=== PATIENT | female | born 2000 | race Two or more races ===

== ENCOUNTER 2023-12-29 23:33 | Inpatient (IN) ==
[2023-12-30 00:20] LABS: Appearance Urine Clear (Clear); Bacteria Urine Automated None Seen (None Seen); Bilirubin Urine Negative (Negative); Blood Urine Negative (Negative); Cast Urine Automated 0-2 /lpf (0-2); Color Urine Yellow; Epithelial Cell Urine Auto 0-2 /hpf (0-2); Glucose Urine UA Negative (Negative); Ketones Urine Negative (Negative); Leukocyte Esterase Urine 2+ (Negative); Nitrite Urine Negative (Negative); Protein Urine Negative (Negative); RBC Urine Automated 0-2 /hpf (0-2); Specific Gravity Urine 1.005 (1.000-1.030); Urobilinogen Urine Negative (Negative)
[2023-12-30 00:21] LABS: Basophils # (auto) 0.03 K/uL (0.00-0.20); Basophils % (auto) 0.5 %; Eosinophils # (auto) 0.08 K/uL (0.00-0.50); Eosinophils % (auto) 1.5 %; Hematocrit (blood only) 38.4 % (37.0-47.0); Hemoglobin 13.3 g/dl (12.0-16.0); Immature Granulocytes # (auto) 0.01 K/uL (0.01-0.20); Immature Granulocytes % (auto) 0.2 %; Lymphocytes # (auto) 2.51 K/uL (1.20-3.40); Lymphocytes % (auto) 45.6 %; Mean Corpuscular Hemoglobin 27.1 pg (25.0-34.0); Mean Corpuscular Hgb Conc 34.6 g/dL (32.0-36.0); Mean Corpuscular Volume 78.4 fL (80.0-100.0); Mean Platelet Volume 9.8 fL (9.4-12.4); Monocytes # (auto) 0.36 K/uL (0.11-0.59); Monocytes % (auto) 6.5 %; Neutrophils # (auto) 2.52 K/uL (1.40-6.50); Neutrophils % (auto) 45.7 %; Platelet Count 295 K/uL (130-400); RDW Coefficient of Variation 12.1 % (11.5-14.5); RDW Standard Deviation 34.2 fL (36.4-46.3); White Blood Count 5.51 K/ul (4.8-10.8)
[2023-12-30 00:33] LABS: Pregnancy Test, Serum Negative (Negative)
[2023-12-30 00:34] LABS: Acetaminophen < 3 ug/ml (10-30); Salicylate < 3.0 mg/dl (3.0-30)
[2023-12-30 00:35] LABS: Albumin Globulin Ratio 1.2 (0.9-2); BUN Creatinine Ratio 15.1 (10-20); Bilirubin,Total 0.3 mg/dl (0.2-1.0); Calcium 10.3 mg/dl (8.6-10.3); Creatinine Clr Calc Pharmacy 93.2 ml/min; Est GFR (African American) 132.7 ml/min; Est GFR (Non-African American) 114.5 ml/min; Globulin 4.1 gm/dl (2.5-4.0); Potassium 4.1 mmol/L (3.5-5.1); Total Protein 9.1 gm/dl (6.0-8.3)
[2023-12-30 00:36] LABS: Amphetamines+Metham, Urine Neg (Neg); Barbiturates, Urine Neg (Neg); Benzodiazepine, Urine Neg (Neg); Cocaine, Urine Neg (Neg); Fentanyl, Urine Neg (Neg); MDMA (Ecstacy), Urine Neg (Neg); Marijuana, Urine Neg (Neg); Methadone, Urine Neg (Neg); Opiate, Urine Neg (Neg); Phencyclidine, Urine Neg (Neg)
[2023-12-30 00:50] LABS: Thyroid Stimulating Hormone 5.873 uIu/ml (0.300-4.500)
[2023-12-30 01:25] LABS: T4 Free Thyroxine 0.78 ng/dl (0.61-1.60)
--- NOTE | 2023-12-30 04:14 | Emergency Department Note ---
Impression & Plan Depression, Intentional overdose, Deliberate self-cutting, Suicidal ideation ED Provider Note ED Provider Note NAME: GEOVANNY DAVIS AGE:23 SEX: Female : 2000 ARRIVES VIA: EMS INFORMANT: Patient ED PROVIDER(s): Cammie Fonseca DO CHIEF COMPLAINT: Mental health evaluation HPI: This is a 23-year-old female who presents emerged department for mental health evaluation. Patient with a history of borderline personality disorder and admits to increased anxiety as well as suicidal ideation recently. He states he does take medications and none of these have changed. Patient states she does have a history of self-harm and did self-harm today by using a razor blade to cut her left arm. She states while historically it has been as a way to relieve stress, today she had suicidal ideation accompanying. Patient states she also intentionally took extra Klonopin this evening at around 11 PM. Nursing staff did contact poison control prior to my evaluation of the patient. Patient denies any homicidal ideation, paranoia, or hallucinations. PAST MEDICAL HISTORY:See Below PAST SURGICAL HISTORY:See Below FAMILY HISTORY:See Below SOCIAL HISTORY:See Below HOME MEDICATIONS:See Below ALLERGIES:See Below VITALS:See Below PHYSICAL EXAMINATION: GENERAL: alert, well appearing, well nourished, no distress, non-toxic EYE EXAM: normal conjunctiva, PERRL and EOM's grossly intact OROPHARYNX: no exudate, no erythema, lips, buccal mucosa, and tongue normal and mucous membranes are moist NECK: supple, no nuchal rigidity, no adenopathy, non-tender LUNGS: Clear to auscultation. Normal chest wall mechanics, no w/r/r HEART: no murmurs, S1 normal and S2 normal ABDOMEN: abdomen soft, non-tender, normo-active bowel sounds, no masses, no rebound or guarding. SKIN: no rashes, petechiae, orbruising UPPER EXTREMITIES: upper extremities are grossly normal. FROM, nml pulses b/l. Multiple superficial lacerations noted left ventral forearm. LOWER EXTREMITIES: No pitting edema. FROM, nml pulses b/l. NEURO EXAM: Normal sensorium, cranial nerves II-XII grossly intact, normal speech, no facial droop,nogross weakness of arms, no gross weakness of legs. Gross sensation intact. No ataxia. Vital Signs: reviewed and remarkable Differential Diagnosis: mood disorder, suicidal ideation, anxiety, depression, substance abuse, toxidrome, infection, hypoglycemia, electrolyte abnormalities, ICH as well as others were considered. MEDICAL DECISION MAKING: This is a 23-year-old female presents emergency room due to concern for increased anxiety, depression, and suicidal ideation with attempted overdose and self-harm with cutting. Labs and urine collected and sent per protocol. Nursing staff did contact poison control as a precaution due to patient's admission of extra glass of p.m. She was observed for the recommended 5 hours and had no new or evolving symptoms. She was hemodynamically stable throughout. Patient evaluated by case management. Lacerations noted to the left forearm did not require any additional repair. Patient referred to [facility] and accepted there for additional inpatient mental health treatment. Consultation(s): 0550: Rosa, outpatient case manager, performed evaluation and referred patient to [facility] liaison came and spoke with the patient. 201 signed by me. ER Treatment Provided: See below Diagnostics Interpreted By Me: -Laboratory studies: As stated above and show below. Triage Nursing Note Reviewed Prior/Outside Records Reviewed Past Med/Surg History Problem List (Updated 12/30/23 @ 06:49 by Sara Burris) Suicidal ideation (Acute) Deliberate self-cutting (Acute) Intentional overdose (Acute) Depression (Acute) Social History (System 12/30/23 @ 06:49 by Sara Burris) Smoking Status: Current some day smoker Tobacco Type: E-cigarettes / Vaping Preferred Language: Uruguayan Feels Safe at Home: Yes Gender Identity: Female Allergies Allergies Allergy/AdvReac Type Severity Reaction Status Date / Time No Known Allergies Allergy Verified 12/30/23 06:49 Home Meds Home Medications Medication Instructions Recorded Confirmed clonazepam 0.25 mg disintegrating 0.25 mg PO HS 12/30/23 12/30/23 tablet drospirenone 3 mg-ethinyl 1 tab PO HS 12/30/23 12/30/23 estradiol 0.03 mg tablet (Natalia (28)) escitalopram oxalate 10 mg tablet 10 mg PO BID 12/30/23 12/30/23 Results & Data (ED) Vital Signs Vital Signs - 24 hr 12/29/23 23:48 12/29/23 23:57 12/30/23 01:42 Temperature 36.9 C Temperature Source Oral Pulse Rate 88 85 96 H Pulse Rate [Apical] Pulse Rate from SpO2 Sensor 99 H Pulse Rhythm [Apical] Pulse Strength [Apical] Respiratory Rate 18 21 Respiratory Effort / Characteristics Non-Labored Spontaneous Respiratory Depth Normal Respiratory Pattern Regular Blood Pressure 133/104 H 120/92 Blood Pressure [Left Arm] Blood Pressure Mean 113 101 Blood Pressure Mean [Left Arm] Blood Pressure Position Lying Blood Pressure Position [Left Arm] Pulse Oximetry 100 99 Oxygen Delivery Method Room Air Room Air Sepsis Recent Fever Within 48 Hours No Sepsis New/Unexplained Change in Mental Status N/A Sepsis Action Taken by Nursing No Action Required 12/30/23 02:30 12/30/23 03:30 12/30/23 03:59 Temperature Temperature Source Pulse Rate 89 91 H Pulse Rate [Apical] 86 Pulse Rate from SpO2 Sensor 89 Pulse Rhythm [Apical] Regular Pulse Strength [Apical] Normal Respiratory Rate 18 19 Respiratory Effort / Characteristics Non-Labored Spontaneous Respiratory Depth Normal Respiratory Pattern Blood Pressure 100/72 Blood Pressure [Left Arm] 118/90 Blood Pressure Mean 81 Blood Pressure Mean [Left Arm] 99 Blood Pressure Position Blood Pressure Position [Left Arm] Lying Pulse Oximetry 98 97 Oxygen Delivery Method Room Air Room Air Sepsis Recent Fever Within 48 Hours Sepsis New/Unexplained Change in Mental Status Sepsis Action Taken by Nursing 12/30/23 04:00 12/30/23 04:30 12/30/23 05:00 Temperature Temperature Source Pulse Rate Pulse Rate [Apical] 86 87 88 Pulse Rate from SpO2 Sensor Pulse Rhythm [Apical] Regular Regular Regular Pulse Strength [Apical] Normal Normal Normal Respiratory Rate 15 15 15 Respiratory Effort / Characteristics Non-Labored Spontaneous Non-Labored Spontaneous Non-Labored Spontaneous Respiratory Depth Normal Normal Normal Respiratory Pattern Regular Regular Regular Blood Pressure Blood Pressure [Left Arm] 97/78 L 104/75 105/72 Blood Pressure Mean Blood Pressure Mean [Left Arm] 84 84 83 Blood Pressure Position Blood Pressure Position [Left Arm] Lying Lying Lying Pulse Oximetry 97 98 99 Oxygen Delivery Method Room Air Room Air Room Air Sepsis Recent Fever Within 48 Hours Sepsis New/Unexplained Change in Mental Status Sepsis Action Taken by Nursing Laboratory Data 12/29/23 23:50 12/29/23 23:50 Lab Results 12/29/23 Range/Units 23:50 WBC 5.51 (4.8-10.8) K/ul RBC 4.90 (4.20-5.40) M/uL Hgb 13.3 (12.0-16.0) g/dl Hct 38.4 (37.0-47.0) % MCV 78.4 L (80.0-100.0) fL MCH 27.1 (25.0-34.0) pg MCHC 34.6 (32.0-36.0) g/dL RDW Std Deviation 34.2 L (36.4-46.3) fL RDW Coeff of Charanjit 12.1 (11.5-14.5) % Plt Count 295 (130-400) K/uL MPV 9.8 (9.4-12.4) fL Immature Gran % (Auto) 0.2 % Neut % (Auto) 45.7 % Lymph % (Auto) 45.6 % [place] % (Auto) 6.5 % Eos % (Auto) 1.5 % Baso % (Auto) 0.5 % Neut # (Auto) 2.52 (1.40-6.50) K/uL Lymph # (Auto) 2.51 (1.20-3.40) K/uL [place] # (Auto) 0.36 (0.11-0.59) K/uL Eos # (Auto) 0.08 (0.00-0.50) K/uL Baso # (Auto) 0.03 (0.00-0.20) K/uL Immature Gran # (Auto) 0.01 (0.01-0.20) K/uL Sodium 137 (136-145) mmol/L Potassium 4.1 (3.5-5.1) mmol/L Chloride 102 (98-107) mmol/L Carbon Dioxide 25 (21-32) mmol/L Anion Gap 10 (3-11) BUN 11 (6-23) mg/dl Creatinine 0.73 (0.6-1.2) mg/dl Est Cr Clr Drug Dosing 93.2 ml/min Est GFR ( Amer) 132.7 ml/min Est GFR (Non-Af Amer) 114.5 ml/min BUN/Creatinine Ratio 15.1 (10-20) Glucose 102 H (70-99(Fasting)) mg/dl Calcium 10.3 (8.6-10.3) mg/dl Total Bilirubin 0.3 (0.2-1.0) mg/dl AST 17 (13-39) U/L ALT 8 (7-52) U/L Alkaline Phosphatase 76 (34-104) U/L Total Protein 9.1 H (6.0-8.3) gm/dl Albumin 5.0 (3.4-5.0) gm/dl Globulin 4.1 H (2.5-4.0) gm/dl Albumin/Globulin Ratio 1.2 (0.9-2) TSH 5.873 H (0.300-4.500) uIu/ml Free T4 0.78 (0.61-1.60) ng/dl HCG, Qual Negative (Negative) Urine Color Yellow Urine Appearance Clear (Clear) Urine pH 6.0 (4.5-7.5) Ur Specific [place] 1.005 (1.000-1.030) Urine Protein Negative (Negative) Urine Glucose (UA) Negative (Negative) Urine Ketones Negative (Negative) Urine Blood Negative (Negative) Urine Nitrite Negative (Negative) Urine Bilirubin Negative (Negative) Urine Urobilinogen Negative (Negative) Ur Leukocyte Esterase 2+ H (Negative) Urine WBC (Auto) 6-10 H (0-5) /hpf Urine RBC (Auto) 0-2 (0-2) /hpf U Hyaline Cast (Auto) 0-2 (0-2) /lpf U Epithel Cells (Auto) 0-2 (0-2) /hpf Urine Bacteria (Auto) None Seen (None Seen) Salicylates < 3.0 L (3.0-30) mg/dl Urine Opiates Screen Neg (Neg) Ur Methadone, Qual Neg (Neg) Urine Fentanyl Screen Neg (Neg) Acetaminophen < 3 L (10-30) ug/ml Urine Barbiturates Neg (Neg) Ur Phencyclidine (PCP) Neg (Neg) U Amphetamin/Meth Scrn Neg (Neg) MDMA (Ecstasy) Screen Neg (Neg) U Benzodiazepines Scrn Neg (Neg) Ur Cocaine Metabolite Neg (Neg) U Marijuana (THC) Screen Neg (Neg) Ethyl Alcohol mg/dL < 10.0 (<10.0) mg/dl SARS-CoV-2, RNA, NAAT NEGATIVE (NEGATIVE) Discharge Plan Visit Data Chief Complaint: Mental Health Evaluation Stated Complaint: Self Inflicted Lacerations, Intentional Overdose ED Provider: Cammie Fonseca Discharge Problem: Depression, Intentional overdose, Deliberate self-cutting, Suicidal ideation Patient Disposition: Admitted As Inpatient Discharge Instructions Interventions: ED Discharge Assessment Last Done: 12/30/23 05:56
[2023-12-30] MEDS ORDERED: SODIUM CHLORIDE 0.65% NA SOLN 45 ML (OCEAN) PRN (06:31)
[2023-12-30] MEDS ORDERED: ACETAMINOPHEN 325 MG TAB PO PRN (06:31)
[2023-12-30] MEDS ORDERED: ALUMINUM/MAGNESIUM SUSP 30 ML UDC PO PRN (06:31)
[2023-12-30] MEDS ORDERED: BISMUTH SUBSALICYLATE LIQD 236 ML PO PRN (06:31)
[2023-12-30] MEDS: hydrOXYzine HCl 25 MG TAB PO PRN (10:01)
[2023-12-30] MEDS: ESCITALOPRAM OXALATE 10 MG TAB PO SCH (13:00)
[2023-12-30] MEDS: LORazepam 1 MG TAB PO PRN (13:01)
[2023-12-30] MEDS: ARIPiprazole 5 MG TAB PO SCH (13:04)
--- NOTE | 2023-12-30 17:08 | Electrocardiogram Report ---
Test Reason : Blood Pressure : / mmHG Vent. Rate : 083 BPM Atrial Rate : 083 BPM P-R Int : 096 ms QRS Dur : 066 ms QT Int : 358 ms P-R-T Axes : 049 035 039 degrees QTc Int : 420 ms Sinus rhythm with short MO Otherwise normal ECG No previous ECGs available Confirmed by Vipin Dias ([id number]) on 12/30/2023 5:08:24 PM Referred By: REFERRED SELF Confirmed By:Vipin Dias
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
[2023-12-30] MEDS: AMITRIPTYLINE HCL 25 MG TAB PO SCH (21:31)
[2023-12-30] MEDS: clonazePAM 0.25 MG OD TAB PO SCH (21:34)
--- NOTE | 2023-12-31 12:49 | Psychiatric Progress Note ---
Date of Service December 31, 2023 Impression / Recommendations Impression Patient continues to be distressed about recent social stressors. Has shown benefit from scheduled lorazepam for anxiety and sleep. Plan to continue current treatment. Overall, I spent a total of 40 minutes with this case including review of chart records, nursing report, review of lab work, direct evaluation of the patient at bedside, counseling the patient, multidisciplinary team meeting, orders, and documentation in the electronic health record. (1) Borderline personality disorder in adult: (2) Suicidal ideation: (3) Intentional overdose: (4) Deliberate self-cutting: (5) Depression: (6) Increased thyroid stimulating hormone (TSH) level: Plan 12/31/2023: Continue medications and treatment plan. 12/30/2023: Restart Lexapro at 10 mg twice daily. Start amitriptyline 25 mg at bedtime. Start Abilify 5 mg daily. Increase home clonazepam to 0.5 mg at bedtime. Start lorazepam 1 mg twice daily as needed for anxiety. Increase hydroxyzine as needed to 50 mg. Home OCP is unavailable and will prescribe similar medication upon discharge as it has not an hospital formulary. Inventory Assets Strengths: fair insight, high education Needs: poor supports, outpatient counseling Suicide Risk Level Suicide Risk Level: Moderate (q15 min suicide checks) Risk Factors Assessment Male: No : No Do You Have Access To A Gun?: No Health Problems: Yes Mental Health Diagnoses: Yes Substance Use Disorders: No Previous Attempt: Yes Family History of Suicide: No Previous Psychiatric Hospitalization: Yes Hopelessness: Yes Protective Factors Assessment Denominational Beliefs: Yes : No Responsible for Young Children: No Employed: No Stable Relationships: No Supportive Family: No Good Rapport with Provider: Yes Absence of Any Risk Factors Above: No Interval History Identifying Information GEOVANNY DAVIS is a 23-year-old female 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 UDS negative. Was admitted on 12/30/23 05:44 on a 201 voluntary commitment for suicidal ideation. Chief Complaint Suicidal ideation, anxiety Review of Systems Sleep Information Total Hours of Sleep: 7.75 Meal Information Percent Meal Consumed - Breakfast: 0 Percent Meal Consumed - Lunch: 100 Percent Meal Consumed - Dinner: 30 Nutrition Comment: pt. allowed to rest Subjective Subjective Patient was seen & assessed and interval progress reviewed with nursing and social work Patient reports sleeping well last night. Was tired from being so anxious. Lorazepam effective. Continues to ruminate about what she wants to tell her ex- boyfriend. Wants him to know how she feels and how she has been hurt. Reports boyfriend asked for a break in the relationship. She is concerned if she contacts boyfriend he will only help out of pity. Reports feelings of intense anger, disappointment, and abandonment. Intermittent suicidal ideation and self-harm interest. Reassured and counseled. Physical Exam Mental Examination Appearance: Well Groomed Eye Contact: Maintains Eye Contact Motor Behavior: Restless Speech: Normal Mood: Anxious, Sad and Crying Affect: Anxious and Congruent Thought Process: Intact and Linear Thought Content: Racing (distressed about outcome with ex-bf) Hallucinations: None Insight: Fair Judgement: Poor (recent ingestion) Vital Signs (Past 24 Hours) Last Vital Signs Temp 36.9 C 12/31/23 06:37 Pulse 102 H 12/31/23 06:38 Resp 16 12/31/23 06:37 BP 118/81 12/31/23 06:38 Pulse Ox 100 12/30/23 06:37 O2 Del Method Room Air 12/30/23 06:37 Results & Data ([facility]) Current Inpatient Medications Current Inpatient Medications: Current Inpatient Medications Acetaminophen (Acetaminophen 325 Mg Tab) 650 mg PO Q4H PRN PRN Reason: Headache or Minor Fever Stop: 01/29/24 06:30 Al Hydrox/Mg Hydrox/Simethicone (Aluminum/Magnesium Susp 30 Ml Udc) 30 ml PO Q4H PRN PRN Reason: GI Upset Stop: 01/29/24 06:30 Amitriptyline HCl (Amitriptyline Hcl 25 Mg Tab) 25 mg PO HS AILIN Stop: 01/29/24 21:59 Last Admin: 12/30/23 21:31 Dose: 25 mg Aripiprazole (Aripiprazole 5 Mg Tab) 5 mg PO QAM AILIN Stop: 01/29/24 12:29 Last Admin: 12/31/23 10:19 Dose: 5 mg Bismuth Subsalicylate (Bismuth Subsalicylate Liqd 236 Ml) 15 ml PO PRN PRN PRN Reason: Loose Stool Stop: 01/29/24 06:30 Clonazepam (Clonazepam 0.25 Mg Od Tab) 0.5 mg PO HS AILIN Stop: 01/29/24 21:59 Last Admin: 12/30/23 21:34 Dose: 0.5 mg Escitalopram Oxalate (Escitalopram Oxalate 10 Mg Tab) 10 mg PO BID AILIN Stop: 01/29/24 12:29 Last Admin: 12/31/23 10:18 Dose: 10 mg Hydroxyzine HCl (Hydroxyzine Hcl 25 Mg Tab) 50 mg PO HSZ PRN PRN Reason: Insomnia Stop: 01/29/24 06:30 Hydroxyzine HCl (Hydroxyzine Hcl 25 Mg Tab) 50 mg PO Q4H PRN PRN Reason: Anxiety Stop: 01/29/24 06:30 Lorazepam (Lorazepam 1 Mg Tab) 1 mg PO BID PRN PRN Reason: Anxiety/Insomnia Stop: 01/29/24 12:20 Last Admin: 12/31/23 11:34 Dose: 1 mg Magnesium Hydroxide (Magnesium Hydroxide Susp 30 Ml Udc) 30 ml PO DAILY PRN PRN Reason: Constipation Stop: 01/29/24 06:30 Miscellaneous (Natalia 28: Order Awaiting Action) 1 each N/A QS AILIN Stop: 01/29/24 15:59 Last Admin: 12/31/23 10:24 Dose: Not Given Sodium Chloride (Sodium Chloride 0.65% Na Soln 45 Ml ([place])) 1 - 2 sprays NA PRN PRN PRN Reason: Nasal Dryness/Congestion Stop: 01/29/24 06:30 Mental Health & Subst Abuse Tx Therapist Name of Therapist: [facility] Post Discharge Appointments Primary Care Physician Name Of Family Doctor/PCP: [facility]
[2024-01-01] MEDS: hydrOXYzine HCl 25 MG TAB PO PRN (14:36)
--- NOTE | 2024-01-01 15:17 | Psychiatric Progress Note ---
Date of Service January 01, 2024 Impression / Recommendations Impression Patient continues to be in distress due to the recent break-up. She presents improved reactivity and affect and reported improved sleep and anxiety. She would benefit from engagement in group therapy on an outpatient basis. More future oriented. Tolerating medications well. Overall, I spent a total of 40 minutes with this case including review of chart records, nursing report, review of lab work, direct evaluation of the patient at bedside, counseling the patient, multidisciplinary team meeting, orders, and documentation in the electronic health record. (1) Borderline personality disorder in adult: (2) Suicidal ideation: (3) Intentional overdose: (4) Deliberate self-cutting: (5) Depression: (6) Increased thyroid stimulating hormone (TSH) level: Plan 01/01/2024: Continue medications and treatment plan. 12/31/2023: Continue medications and treatment plan. 12/30/2023: Restart Lexapro at 10 mg twice daily. Start amitriptyline 25 mg at bedtime. Start Abilify 5 mg daily. Increase home clonazepam to 0.5 mg at bedtime. Start lorazepam 1 mg twice daily as needed for anxiety. Increase hydroxyzine as needed to 50 mg. Home OCP is unavailable and will prescribe similar medication upon discharge as it has not an hospital formulary. Inventory Assets Strengths: fair insight, high education Needs: poor supports, outpatient counseling Suicide Risk Level Suicide Risk Level: Moderate (q15 min suicide checks) Risk Factors Assessment Male: No : No Do You Have Access To A Gun?: No Health Problems: Yes Mental Health Diagnoses: Yes Substance Use Disorders: No Previous Attempt: Yes Family History of Suicide: No Previous Psychiatric Hospitalization: Yes Hopelessness: Yes Protective Factors Assessment Advent Beliefs: Yes : No Responsible for Young Children: No Employed: No Stable Relationships: No Supportive Family: No Good Rapport with Provider: Yes Absence of Any Risk Factors Above: No Interval History Identifying Information GEOVANNY DAVIS 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 UDS negative. Was admitted on 12/30/23 05:44 on a 201 voluntary commitment for suicidal ideation. Chief Complaint "in shock". Review of Systems Sleep Information Total Hours of Sleep: 6.5 Meal Information Percent Meal Consumed - Breakfast: 20 Percent Meal Consumed - Lunch: 50 Percent Meal Consumed - Dinner: 0 Nutrition Comment: pt. allowed to rest Subjective Subjective Patient was seen & assessed and interval progress reviewed with treatment team nursing and social work Reports still being "shellshocked" about her boyfriend leaving her. She was in belief that you would get and they made plans including buying a wedding dress. She feels abandoned. Reports not having anyone else for support in this area. Is considering getting a dog as an emotional support animal and asked about the process. She spoke to her parents and told them that she is okay but not at the [facility]. Reports sleeping better and feels less anxious with the lorazepam. Discusses how it was stressful to bring medications back from [place] constantly and she feels more reassured that she has medications here. No further concerns presented. Physical Exam Mental Examination Appearance: Well Groomed Eye Contact: Maintains Eye Contact Motor Behavior: Slowed Speech: Normal Mood: Anxious and Sad Affect: Anxious and Congruent Thought Process: Intact and Linear Thought Content: Racing (distressed about outcome with ex-bf) Hallucinations: None Insight: Fair Judgement: Poor (recent ingestion) Vital Signs (Past 24 Hours) Last Vital Signs Temp 36.9 C 01/01/24 06:49 Pulse 97 H 01/01/24 06:50 Resp 16 01/01/24 06:49 BP 125/80 01/01/24 06:50 Pulse Ox 100 12/30/23 06:37 O2 Del Method Room Air 12/30/23 06:37 Results & Data ([facility]) Current Inpatient Medications Current Inpatient Medications: Current Inpatient Medications Acetaminophen (Acetaminophen 325 Mg Tab) 650 mg PO Q4H PRN PRN Reason: Headache or Minor Fever Stop: 01/29/24 06:30 Al Hydrox/Mg Hydrox/Simethicone (Aluminum/Magnesium Susp 30 Ml Udc) 30 ml PO Q4H PRN PRN Reason: GI Upset Stop: 01/29/24 06:30 Amitriptyline HCl (Amitriptyline Hcl 25 Mg Tab) 25 mg PO HS AILIN Stop: 01/29/24 21:59 Last Admin: 12/31/23 20:41 Dose: 25 mg Aripiprazole (Aripiprazole 5 Mg Tab) 5 mg PO QAM AILIN Stop: 01/29/24 12:29 Last Admin: 01/01/24 09:10 Dose: 5 mg Bismuth Subsalicylate (Bismuth Subsalicylate Liqd 236 Ml) 15 ml PO PRN PRN PRN Reason: Loose Stool Stop: 01/29/24 06:30 Clonazepam (Clonazepam 0.25 Mg Od Tab) 0.5 mg PO HS AILIN Stop: 01/29/24 21:59 Last Admin: 12/31/23 20:42 Dose: 0.5 mg Escitalopram Oxalate (Escitalopram Oxalate 10 Mg Tab) 10 mg PO BID AILIN Stop: 01/29/24 12:29 Last Admin: 01/01/24 09:10 Dose: 10 mg Hydroxyzine HCl (Hydroxyzine Hcl 25 Mg Tab) 50 mg PO HSZ PRN PRN Reason: Insomnia Stop: 01/29/24 06:30 Hydroxyzine HCl (Hydroxyzine Hcl 25 Mg Tab) 50 mg PO Q4H PRN PRN Reason: Anxiety Stop: 01/29/24 06:30 Last Admin: 01/01/24 14:36 Dose: 50 mg Lorazepam (Lorazepam 1 Mg Tab) 1 mg PO BID PRN PRN Reason: Anxiety/Insomnia Stop: 01/29/24 12:20 Last Admin: 01/01/24 10:21 Dose: 1 mg Magnesium Hydroxide (Magnesium Hydroxide Susp 30 Ml Udc) 30 ml PO DAILY PRN PRN Reason: Constipation Stop: 01/29/24 06:30 Miscellaneous (Natalia 28: Order Awaiting Action) 1 each N/A QS AILIN Stop: 01/29/24 15:59 Last Admin: 01/01/24 09:17 Dose: Not Given Sodium Chloride (Sodium Chloride 0.65% Na Soln 45 Ml ([place])) 1 - 2 sprays NA PRN PRN PRN Reason: Nasal Dryness/Congestion Stop: 01/29/24 06:30 Mental Health & Subst Abuse Tx Therapist Name of Therapist: [employer] [facility] Post Discharge Appointments Primary Care Physician Name Of Family Doctor/PCP: Gene
[2024-01-02] MEDS: LORazepam 0.5 MG TAB PO PRN (11:29)
--- NOTE | 2024-01-02 14:24 | Psychiatric Progress Note ---
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 UDS negative. Was admitted on 12/30/23 05:44 on a 201 voluntary commitment for suicidal ideation. A:Patient distressed about recent break-up. Presenting passive suicidal ideation and lack of appetite. Continued need for anxiety medications. Would benefit from engagement in IOP upon discharge. Plan to decrease as needed lorazepam dose. Overall, I spent a total of 40 minutes with this case including review of chart records, nursing report, review of lab work, direct evaluation of the patient at bedside, counseling the patient, multidisciplinary team meeting, orders, and documentation in the electronic health record. (1) Borderline personality disorder in adult: (2) Suicidal ideation: (3) Intentional overdose: (4) Deliberate self-cutting: (5) Depression: (6) Increased thyroid stimulating hormone (TSH) level: Plan 01/02/2024: Decrease lorazepam as needed to 0.75 mg twice daily. Continue other medications and treatment plan. Referral to [facility]. 01/01/2024: Continue medications and treatment plan. 12/31/2023: Continue medications and treatment plan. 12/30/2023: Restart Lexapro at 10 mg twice daily. Start amitriptyline 25 mg at bedtime. Start Abilify 5 mg daily. Increase home clonazepam to 0.5 mg at bedtime. Start lorazepam 1 mg twice daily as needed for anxiety. Increase hydroxyzine as needed to 50 mg. Home OCP is unavailable and will prescribe similar medication upon discharge as it has not an hospital formulary. Inventory Assets Strengths: fair insight, high education Needs: poor supports, outpatient counseling Suicide Risk Level Suicide Risk Level: Moderate (q15 min suicide checks) Risk Factors Assessment Male: No : No Do You Have Access To A Gun?: No Health Problems: Yes Mental Health Diagnoses: Yes Substance Use Disorders: No Previous Attempt: Yes Family History of Suicide: No Previous Psychiatric Hospitalization: Yes Hopelessness: Yes Protective Factors Assessment Yazidism Beliefs: Yes : No Responsible for Young Children: No Employed: No Stable Relationships: No Supportive Family: No Good Rapport with Provider: Yes Absence of Any Risk Factors Above: No Interval History Identifying Information GEOVANNY DAVIS 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 UDS negative. Was admitted on 12/30/23 05:44 on a 201 voluntary commitment for suicidal ideation. Chief Complaint Suicidal ideation Review of Systems Sleep Information Total Hours of Sleep: 6.75 Meal Information Percent Meal Consumed - Breakfast: 90 Percent Meal Consumed - Lunch: 50 Percent Meal Consumed - Dinner: 10 Nutrition Comment: pt. allowed to rest Subjective Subjective Patient was seen & assessed and interval progress reviewed with nursing and social work Nursing reported patient has not been participating in groups and not eating well. Has engaged in some self-care. Patient reports feeling hopeless. She bought a cake for her ex-boyfriend, put a lot of thought into it and is upset that she will be able to give it to him. She presents anxious ruminations and self judgment and feels that she has been abandoned. Reports being isolated and that nobody is calling her. Complains of passive suicidal ideation and does not feel safe to be alone. Reports not eating because she does not have an appetite. Patient was reassured and counseled. Discussed mindfulness and reflected on her anxious ruminations and self judgment. Physical Exam Mental Examination Appearance: Well Groomed Eye Contact: Maintains Eye Contact Motor Behavior: Slowed Speech: Normal Mood: Anxious and Sad Affect: Anxious and Congruent Thought Process: Intact and Linear Thought Content: Racing (distressed about outcome with ex-bf) Hallucinations: None Insight: Fair Judgement: Poor (recent ingestion) Vital Signs (Past 24 Hours) Last Vital Signs Temp 36.7 C 01/02/24 11:41 Pulse 88 01/02/24 06:44 Resp 16 01/02/24 06:43 BP 120/82 01/02/24 06:44 Pulse Ox 100 12/30/23 06:37 O2 Del Method Room Air 12/30/23 06:37 Results & Data ([facility]) Current Inpatient Medications Current Inpatient Medications: Current Inpatient Medications Acetaminophen (Acetaminophen 325 Mg Tab) 650 mg PO Q4H PRN PRN Reason: Headache or Minor Fever Stop: 01/29/24 06:30 Al Hydrox/Mg Hydrox/Simethicone (Aluminum/Magnesium Susp 30 Ml Udc) 30 ml PO Q4H PRN PRN Reason: GI Upset Stop: 01/29/24 06:30 Amitriptyline HCl (Amitriptyline Hcl 25 Mg Tab) 25 mg PO HS AILIN Stop: 01/29/24 21:59 Last Admin: 01/01/24 21:10 Dose: 25 mg Aripiprazole (Aripiprazole 5 Mg Tab) 5 mg PO QAM AILIN Stop: 01/29/24 12:29 Last Admin: 01/02/24 10:03 Dose: 5 mg Bismuth Subsalicylate (Bismuth Subsalicylate Liqd 236 Ml) 15 ml PO PRN PRN PRN Reason: Loose Stool Stop: 01/29/24 06:30 Clonazepam (Clonazepam 0.25 Mg Od Tab) 0.5 mg PO HS AILIN Stop: 01/29/24 21:59 Last Admin: 01/01/24 21:10 Dose: 0.5 mg Escitalopram Oxalate (Escitalopram Oxalate 10 Mg Tab) 10 mg PO BID AILIN Stop: 01/29/24 12:29 Last Admin: 01/02/24 10:03 Dose: 10 mg Hydroxyzine HCl (Hydroxyzine Hcl 25 Mg Tab) 50 mg PO HSZ PRN PRN Reason: Insomnia Stop: 01/29/24 06:30 Hydroxyzine HCl (Hydroxyzine Hcl 25 Mg Tab) 50 mg PO Q4H PRN PRN Reason: Anxiety Stop: 01/29/24 06:30 Last Admin: 01/01/24 14:36 Dose: 50 mg Lorazepam (Lorazepam 0.5 Mg Tab) 0.75 mg PO BID PRN PRN Reason: Anxiety/Insomnia Stop: 01/29/24 12:20 Last Admin: 01/02/24 11:29 Dose: 0.75 mg Magnesium Hydroxide (Magnesium Hydroxide Susp 30 Ml Udc) 30 ml PO DAILY PRN PRN Reason: Constipation Stop: 01/29/24 06:30 Miscellaneous (Natalia 28: Order Awaiting Action) 1 each N/A QS AILIN Stop: 01/29/24 15:59 Last Admin: 01/02/24 13:13 Dose: Not Given Sodium Chloride (Sodium Chloride 0.65% Na Soln 45 Ml ([place])) 1 - 2 sprays NA PRN PRN PRN Reason: Nasal Dryness/Congestion Stop: 01/29/24 06:30 Mental Health & Subst Abuse Tx Therapist Name of Therapist: Davian Pop Post Discharge Appointments Primary Care Physician Name Of Family Doctor/PCP: NICOLAS
--- NOTE | 2024-01-03 14:07 | Psychiatric Progress Note ---
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 UDS negative. Was admitted on 12/30/23 05:44 on a 201 voluntary commitment for suicidal ideation. A:Patient continues to be distressed about the recent break-up. Concern for isolation and lack of supports or community. Physical anxiety appears to be improving. Plan to decrease lorazepam twice daily as needed dose. Patient would likely benefit from engagement in student groups, community service, and intensive outpatient program. Given parents are in a different time zone established 9 AM and 6 PM as acceptable times to contact them with her cell ph one and use nursing support. Overall, I spent a total of 40 minutes with this case including review of chart records, nursing report, review of lab work, direct evaluation of the patient at bedside, counseling the patient, multidisciplinary team meeting, orders, and documentation in the electronic health record. (1) Borderline personality disorder in adult: (2) Suicidal ideation: (3) Intentional overdose: (4) Deliberate self-cutting: (5) Depression: (6) Increased thyroid stimulating hormone (TSH) level: Plan 01/03/2024: Decrease lorazepam twice daily as needed to 0.5 mg. Continue other medications. 01/02/2024: Decrease lorazepam as needed to 0.75 mg twice daily. Continue other medications and treatment plan. Referral to [facility]. 01/01/2024: Continue medications and treatment plan. 12/31/2023: Continue medications and treatment plan. 12/30/2023: Restart Lexapro at 10 mg twice daily. Start amitriptyline 25 mg at bedtime. Start Abilify 5 mg daily. Increase home clonazepam to 0.5 mg at bedtime. Start lorazepam 1 mg twice daily as needed for anxiety. Increase hydroxyzine as needed to 50 mg. Home OCP is unavailable and will prescribe similar medication upon discharge as it has not an hospital formulary. Inventory Assets Strengths: fair insight, high education Needs: poor supports, outpatient counseling Suicide Risk Level Suicide Risk Level: Moderate (q15 min suicide checks) Risk Factors Assessment Male: No : No Do You Have Access To A Gun?: No Health Problems: Yes Mental Health Diagnoses: Yes Substance Use Disorders: No Previous Attempt: Yes Family History of Suicide: No Previous Psychiatric Hospitalization: Yes Hopelessness: Yes Protective Factors Assessment Hinduism Beliefs: Yes : No Responsible for Young Children: No Employed: No Stable Relationships: No Supportive Family: No Good Rapport with Provider: Yes Absence of Any Risk Factors Above: No Interval History Identifying Information GEOVANNY DAVIS 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 UDS negative. Was admitted on 12/30/23 05:44 on a 201 voluntary commitment for suicidal ideation. Chief Complaint Anxiety Review of Systems Sleep Information Total Hours of Sleep: 7.30 Sleep Comments: HS Klonopin and Elavil Meal Information Percent Meal Consumed - Breakfast: 100 Percent Meal Consumed - Lunch: 10 Percent Meal Consumed - Dinner: 100 Nutrition Comment: pt. allowed to rest Subjective Subjective Patient was seen & assessed and interval progress reviewed with treatment team nursing and social work Nursing reported patient is eating more. She slept well. Continues to ruminate about her future and she reports being hopeless. Reports putting all her time and energy into this relationship and made plans and according to it and does not know what to do. She does not feel like she can be by herself at this time. Reports difficulty in making friends in her class due to the competitive nature and that many students are in a different place of life in her. Physical Exam Mental Examination Appearance: Well Groomed Eye Contact: Maintains Eye Contact Motor Behavior: Slowed Speech: Normal Mood: Anxious and Sad Affect: Anxious and Congruent Thought Process: Intact and Linear Thought Content: Racing (distressed about outcome with ex-bf) Hallucinations: None Insight: Fair Judgement: Poor (recent ingestion) Vital Signs (Past 24 Hours) Last Vital Signs Temp 36.9 C 01/03/24 06:36 Pulse 96 H 01/03/24 06:36 Resp 16 01/03/24 06:36 BP 106/77 01/03/24 06:36 Pulse Ox 100 12/30/23 06:37 O2 Del Method Room Air 12/30/23 06:37 Results & Data (U) Current Inpatient Medications Current Inpatient Medications: Current Inpatient Medications Acetaminophen (Acetaminophen 325 Mg Tab) 650 mg PO Q4H PRN PRN Reason: Headache or Minor Fever Stop: 01/29/24 06:30 Al Hydrox/Mg Hydrox/Simethicone (Aluminum/Magnesium Susp 30 Ml Udc) 30 ml PO Q4H PRN PRN Reason: GI Upset Stop: 01/29/24 06:30 Amitriptyline HCl (Amitriptyline Hcl 25 Mg Tab) 25 mg PO HS AILIN Stop: 01/29/24 21:59 Last Admin: 01/02/24 20:37 Dose: 25 mg Aripiprazole (Aripiprazole 5 Mg Tab) 5 mg PO QAM AILIN Stop: 01/29/24 12:29 Last Admin: 01/03/24 08:33 Dose: 5 mg Bismuth Subsalicylate (Bismuth Subsalicylate Liqd 236 Ml) 15 ml PO PRN PRN PRN Reason: Loose Stool Stop: 01/29/24 06:30 Clonazepam (Clonazepam 0.25 Mg Od Tab) 0.5 mg PO HS AILIN Stop: 01/29/24 21:59 Last Admin: 01/02/24 20:37 Dose: 0.5 mg Escitalopram Oxalate (Escitalopram Oxalate 10 Mg Tab) 10 mg PO BID AILIN Stop: 01/29/24 12:29 Last Admin: 01/03/24 08:33 Dose: 10 mg Hydroxyzine HCl (Hydroxyzine Hcl 25 Mg Tab) 50 mg PO HSZ PRN PRN Reason: Insomnia Stop: 01/29/24 06:30 Hydroxyzine HCl (Hydroxyzine Hcl 25 Mg Tab) 50 mg PO Q4H PRN PRN Reason: Anxiety Stop: 01/29/24 06:30 Last Admin: 01/01/24 14:36 Dose: 50 mg Lorazepam (Lorazepam 0.5 Mg Tab) 0.5 mg PO BID PRN PRN Reason: Anxiety/Insomnia Stop: 01/29/24 12:20 Magnesium Hydroxide (Magnesium Hydroxide Susp 30 Ml Udc) 30 ml PO DAILY PRN PRN Reason: Constipation Stop: 01/29/24 06:30 Miscellaneous (Natalia 28: Order Awaiting Action) 1 each N/A QS AILIN Stop: 01/29/24 15:59 Last Admin: 01/03/24 11:20 Dose: Not Given Sodium Chloride (Sodium Chloride 0.65% Na Soln 45 Ml ([place])) 1 - 2 sprays NA PRN PRN PRN Reason: Nasal Dryness/Congestion Stop: 01/29/24 06:30 Mental Health & Subst Abuse Tx Psychiatrist Name of Psychiatrist: [facility] Psychiatrist's Time of Appointment with Psychiatrist: Please confirm intake date/time Psychiatric Appointment Comment: Virtual Therapist Name of Therapist: [facility] Therapist's Time of Therapist Appointment: Please confirm intake date/time Therapy Appointment Comment: Virtual Post Discharge Appointments Primary Care Physician Name Of Family Doctor/PCP: [facility] Primary Care Time of Appointment with PCP: Please follow up with PCP as needed. Contact Information Discharge Discharge Address: [facility] [address], [address] [facility], [facility] [id number]
[2024-01-03] MEDS: LORazepam 0.5 MG TAB PO PRN (19:14)
--- NOTE | 2024-01-04 09:24 | Psychiatric Progress Note ---
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 UDS negative. Was admitted on 12/30/23 05:44 on a 201 voluntary commitment for suicidal ideation. A: Ongoing depression and mood lability with SI after her ex-partner requested she stop calling him and told her the relationship is over. Reviewed her medications, given recent overdose of Klonopin and concerns for disinhibition will discontinue benzodiazepines and given her concerns for weight gain side effects will discontinue abilify. She consents to consolidating dose of escitalopram to be 20mg qd instead of split dosing. Reviewed DBT and importance of therapy focus which she is in support of, reports she has only done therapy sparingly in the past. Overall, I spent a total of 45 minutes with this case including review of chart records, nursing report, review of lab work, direct evaluation of the patient at bedside, counseling the patient, multidisciplinary team meeting, orders, and documentation in the electronic health record. (1) Intentional overdose: (2) Borderline personality disorder in adult: (3) Suicidal ideation: (4) Deliberate self-cutting: (5) Depression: (6) Increased thyroid stimulating hormone (TSH) level: Plan 01/04/2024: Discontinue benzodiazepines. Discontinue Abilify. Consolidate escitalopram to 20mg qd. 01/03/2024: Decrease lorazepam twice daily as needed to 0.5 mg. Continue other medications. 01/02/2024: Decrease lorazepam as needed to 0.75 mg twice daily. Continue other medications and treatment plan. Referral to [facility]. 01/01/2024: Continue medications and treatment plan. 12/31/2023: Continue medications and treatment plan. 12/30/2023: Restart Lexapro at 10 mg twice daily. Start amitriptyline 25 mg at bedtime. Start Abilify 5 mg daily. Increase home clonazepam to 0.5 mg at bedtime. Start lorazepam 1 mg twice daily as needed for anxiety. Increase hydroxyzine as needed to 50 mg. Home OCP is unavailable and will prescribe similar medication upon discharge as it has not an hospital formulary. Inventory Assets Strengths: fair insight, high education Needs: poor supports, outpatient counseling Suicide Risk Level Suicide Risk Level: High-Moderate (q15 min suicide checks) (BPD with depression and s/p suicide attempt with ongoing SI and depression due to relationship ending, but feels safe in the hospital and feels able to ask for increased support) Risk Factors Assessment Male: No : No Do You Have Access To A Gun?: No Health Problems: Yes Mental Health Diagnoses: Yes Substance Use Disorders: No Previous Attempt: Yes Family History of Suicide: No Previous Psychiatric Hospitalization: Yes Hopelessness: Yes Protective Factors Assessment Muslim Beliefs: Yes : No Responsible for Young Children: No Employed: No Stable Relationships: No Supportive Family: No Good Rapport with Provider: Yes Absence of Any Risk Factors Above: No Interval History Identifying Information 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 UDS negative. Was admitted on 12/30/23 05:44 on a 201 voluntary commitment for suicidal ideation. Chief Complaint "I'm not alright". Review of Systems Sleep Information Total Hours of Sleep: 7 Sleep Comments: HS Klonopin Meal Information Percent Meal Consumed - Breakfast: 100 Percent Meal Consumed - Lunch: 10 Percent Meal Consumed - Dinner: 50 Nutrition Comment: pt. allowed to rest Subjective Subjective Patient was seen & assessed and interval progress reviewed with treatment team nursing and social work. Reports feeling very upset and sad after her ex- boyfriend officially told her on the phone this afternoon that their relationship is over. Due to this experienced an increase in intensity of her SI but still feels safe in the hospital. Reviewed recent stressors leading to her two suicide attempts in the past week including financial stress of her parents having to take out a loan to support her schooling and then recent academic struggles and arguments with her ex-partner. She agrees with diagnosis of BPD, reviewed evidence for DBT and limited utility of medications. She is agreeable to discontinuing Klonopin, especially given she took an overdose of this as a suicide attempt prior to admission and abilify given her concerns for weight gain. Physical Exam Psychiatric Orientation: alert and oriented x 3 Apperance: appropriately dressed and appropriately groomed Eye Contact: + fair eye contact Motor Behavior: no abnormal motor movements Speech: normal rate/rhythm/volume of speech Affect: + depressed affect and + anxious affect Mood: + depressed mood, + anxious mood and + irritable mood Thought Process: + circumstantial thought process Thought Content: + preoccupation and reality based without delusions Suicidal Thoughts: denies suicidal plan; + reports suicidal thoughts Homicidal Thoughts: denies homicidal thoughts Hallucinations: no auditory hallucinations and no visual hallucinations Insight: + limited insight Judgment: + limited judgement Vital Signs (Past 24 Hours) Last Vital Signs Temp 36.8 C 01/04/24 06:49 Pulse 98 H 01/04/24 06:49 Resp 16 01/04/24 06:49 BP 106/72 01/04/24 06:50 Pulse Ox 98 01/04/24 06:49 O2 Del Method Room Air 01/04/24 06:49 Results & Data ([facility]) Current Inpatient Medications Current Inpatient Medications: Current Inpatient Medications Acetaminophen (Acetaminophen 325 Mg Tab) 650 mg PO Q4H PRN PRN Reason: Headache or Minor Fever Stop: 01/29/24 06:30 Al Hydrox/Mg Hydrox/Simethicone (Aluminum/Magnesium Susp 30 Ml Udc) 30 ml PO Q4H PRN PRN Reason: GI Upset Stop: 01/29/24 06:30 Amitriptyline HCl (Amitriptyline Hcl 25 Mg Tab) 25 mg PO HS AILIN Stop: 01/29/24 21:59 Last Admin: 01/03/24 21:50 Dose: 25 mg Aripiprazole (Aripiprazole 5 Mg Tab) 5 mg PO QAM AILIN Stop: 01/29/24 12:29 Last Admin: 01/04/24 08:40 Dose: 5 mg Bismuth Subsalicylate (Bismuth Subsalicylate Liqd 236 Ml) 15 ml PO PRN PRN PRN Reason: Loose Stool Stop: 01/29/24 06:30 Clonazepam (Clonazepam 0.25 Mg Od Tab) 0.5 mg PO HS AILIN Stop: 01/29/24 21:59 Last Admin: 01/03/24 21:51 Dose: 0.5 mg Escitalopram Oxalate (Escitalopram Oxalate 10 Mg Tab) 10 mg PO BID AILIN Stop: 01/29/24 12:29 Last Admin: 01/04/24 08:40 Dose: 10 mg Hydroxyzine HCl (Hydroxyzine Hcl 25 Mg Tab) 50 mg PO HSZ PRN PRN Reason: Insomnia Stop: 01/29/24 06:30 Hydroxyzine HCl (Hydroxyzine Hcl 25 Mg Tab) 50 mg PO Q4H PRN PRN Reason: Anxiety Stop: 01/29/24 06:30 Last Admin: 01/01/24 14:36 Dose: 50 mg Lorazepam (Lorazepam 0.5 Mg Tab) 0.5 mg PO BID PRN PRN Reason: Anxiety/Insomnia Stop: 01/29/24 12:20 Last Admin: 01/03/24 19:14 Dose: 0.5 mg Magnesium Hydroxide (Magnesium Hydroxide Susp 30 Ml Udc) 30 ml PO DAILY PRN PRN Reason: Constipation Stop: 01/29/24 06:30 Miscellaneous (Natalia 28: Order Awaiting Action) 1 each N/A QS AILIN Stop: 01/29/24 15:59 Last Admin: 01/04/24 08:39 Dose: Not Given Sodium Chloride (Sodium Chloride 0.65% Na Soln 45 Ml ([place])) 1 - 2 sprays NA PRN PRN PRN Reason: Nasal Dryness/Congestion Stop: 01/29/24 06:30 Mental Health & Subst Abuse Tx Psychiatrist Name of Psychiatrist: [facility] Psychiatrist's Time of Appointment with Psychiatrist: Please confirm intake date/time Psychiatric Appointment Comment: Virtual Therapist Name of Therapist: [facility] Therapist's Time of Therapist Appointment: Please confirm intake date/time Therapy Appointment Comment: Virtual Post Discharge Appointments Primary Care Physician Name Of Family Doctor/PCP: [facility] Primary Care Time of Appointment with PCP: Please follow up with PCP as needed. Contact Information Discharge Discharge Address: [facility] [address], [address] [facility], [facility] [id number]
[2024-01-04] MEDS: hydrOXYzine HCl 25 MG TAB PO PRN (20:34)
[2024-01-05] MEDS: ESCITALOPRAM OXALATE 20 MG TAB PO SCH (08:42)
--- NOTE | 2024-01-05 15:24 | Psychiatric Progress Note ---
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 UDS negative. Was admitted on 12/30/23 05:44 on a 201 voluntary commitment for suicidal ideation. A: Mood improving today, denies SI and feeling more hopeful and future-focused which she attributes to thinking about her motivation to get back to her academic work. Tolerating medication adjustments and discontinuation of abilify and benzodiapines. Motivated for [facility]. Working on disposition planning. Overall, I spent a total of 40 minutes with this case including review of chart records, nursing report, review of lab work, direct evaluation of the patient at bedside, counseling the patient, multidisciplinary team meeting, orders, and documentation in the electronic health record. (1) Intentional overdose: (2) Borderline personality disorder in adult: (3) Suicidal ideation: (4) Deliberate self-cutting: (5) Depression: (6) Increased thyroid stimulating hormone (TSH) level: Plan 01/05/2024: Continue current medications and tx plan. 01/04/2024: Discontinue benzodiazepines. Discontinue Abilify. Consolidate escitalopram to 20mg qd. 01/03/2024: Decrease lorazepam twice daily as needed to 0.5 mg. Continue other medications. 01/02/2024: Decrease lorazepam as needed to 0.75 mg twice daily. Continue other medications and treatment plan. Referral to [facility]. 01/01/2024: Continue medications and treatment plan. 12/31/2023: Continue medications and treatment plan. 12/30/2023: Restart Lexapro at 10 mg twice daily. Start amitriptyline 25 mg at bedtime. Start Abilify 5 mg daily. Increase home clonazepam to 0.5 mg at bedtime. Start lorazepam 1 mg twice daily as needed for anxiety. Increase hydroxyzine as needed to 50 mg. Home OCP is unavailable and will prescribe similar medication upon discharge as it has not an hospital formulary. Inventory Assets Strengths: fair insight, high education Needs: poor supports, outpatient counseling Suicide Risk Level Suicide Risk Level: Moderate (q15 min suicide checks) (BPD with depression and s/p suicide attempt but now mood improving, denies SI, future oriented and feels safe in the hospital and feels able to ask for increased support) Risk Factors Assessment Male: No : No Do You Have Access To A Gun?: No Health Problems: Yes Mental Health Diagnoses: Yes Substance Use Disorders: No Previous Attempt: Yes Family History of Suicide: No Previous Psychiatric Hospitalization: Yes Hopelessness: Yes Protective Factors Assessment Zoroastrianism Beliefs: Yes : No Responsible for Young Children: No Employed: No Stable Relationships: No Supportive Family: No Good Rapport with Provider: Yes Absence of Any Risk Factors Above: No Interval History Identifying Information 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 UDS negative. Was admitted on 12/30/23 05:44 on a 201 voluntary commitment for suicidal ideation. Chief Complaint "I'm doing good". Review of Systems Sleep Information Total Hours of Sleep: 8 Meal Information Percent Meal Consumed - Breakfast: 100 Percent Meal Consumed - Lunch: 100 Percent Meal Consumed - Dinner: 100 Nutrition Comment: pt. allowed to rest Subjective Subjective Patient was seen & assessed and interval progress reviewed with treatment team nursing and social work. Reports her mood has been much better today. Feeling more hopeful and feels this change is due to thinking about her academic work and career goals and with this seeing a future for herself again. Denies any medication side effects. Physical Exam Psychiatric Orientation: alert and oriented x 3 Apperance: appropriately dressed and appropriately groomed Eye Contact: good eye contact Motor Behavior: no abnormal motor movements Speech: normal rate/rhythm/volume of speech Affect: euthymic affect Mood: + anxious mood; no depressed mood Thought Process: + circumstantial thought process Thought Content: reality based without delusions Suicidal Thoughts: denies suicidal thoughts and denies suicidal plan Homicidal Thoughts: denies homicidal thoughts Hallucinations: no auditory hallucinations and no visual hallucinations Insight: + fair insight Judgment: + fair judgement Vital Signs (Past 24 Hours) Last Vital Signs Temp 36.6 C 01/05/24 06:00 Pulse 98 H 01/05/24 06:24 Resp 16 01/05/24 06:00 BP 117/77 01/05/24 06:24 Pulse Ox 98 01/05/24 06:00 O2 Del Method Room Air 01/05/24 06:00 Results & Data ([facility]) Current Inpatient Medications Current Inpatient Medications: Current Inpatient Medications Acetaminophen (Acetaminophen 325 Mg Tab) 650 mg PO Q4H PRN PRN Reason: Headache or Minor Fever Stop: 01/29/24 06:30 Al Hydrox/Mg Hydrox/Simethicone (Aluminum/Magnesium Susp 30 Ml Udc) 30 ml PO Q4H PRN PRN Reason: GI Upset Stop: 01/29/24 06:30 Amitriptyline HCl (Amitriptyline Hcl 25 Mg Tab) 25 mg PO HS AILIN Stop: 01/29/24 21:59 Last Admin: 01/04/24 20:34 Dose: 25 mg Bismuth Subsalicylate (Bismuth Subsalicylate Liqd 236 Ml) 15 ml PO PRN PRN PRN Reason: Loose Stool Stop: 01/29/24 06:30 Escitalopram Oxalate (Escitalopram Oxalate 20 Mg Tab) 20 mg PO QAM AILIN Stop: 02/04/24 08:59 Last Admin: 01/05/24 08:42 Dose: 20 mg Hydroxyzine HCl (Hydroxyzine Hcl 25 Mg Tab) 50 mg PO HSZ PRN PRN Reason: Insomnia Stop: 01/29/24 06:30 Last Admin: 01/04/24 20:34 Dose: 50 mg Hydroxyzine HCl (Hydroxyzine Hcl 25 Mg Tab) 50 mg PO Q4H PRN PRN Reason: Anxiety Stop: 01/29/24 06:30 Last Admin: 01/05/24 13:15 Dose: 50 mg Magnesium Hydroxide (Magnesium Hydroxide Susp 30 Ml Udc) 30 ml PO DAILY PRN PRN Reason: Constipation Stop: 01/29/24 06:30 Miscellaneous (Natalia 28: Order Awaiting Action) 1 each N/A QS AILIN Stop: 01/29/24 15:59 Last Admin: 01/05/24 08:45 Dose: Not Given Sodium Chloride (Sodium Chloride 0.65% Na Soln 45 Ml ([place])) 1 - 2 sprays NA PRN PRN PRN Reason: Nasal Dryness/Congestion Stop: 01/29/24 06:30 Mental Health & Subst Abuse Tx Psychiatrist Name of Psychiatrist: [facility] Psychiatrist's Time of Appointment with Psychiatrist: Please confirm intake date/time Psychiatric Appointment Comment: Virtual Therapist Name of Therapist: [facility] Therapist's Time of Therapist Appointment: Please confirm intake date/time Therapy Appointment Comment: Virtual Post Discharge Appointments Primary Care Physician Name Of Family Doctor/PCP: [facility] Primary Care Time of Appointment with PCP: Please follow up with PCP as needed. Contact Information Discharge Discharge Address: [facility] [address], [address] [facility], [facility] [address]
[2024-01-05] MEDS: MAGNESIUM HYDROXIDE SUSP 30 ML UDC PO PRN (18:56)
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
== END 2024-01-06 11:56 | disposition home or self-care (01) | DRG 918 ==
LOC: EDBD → ED 23:33 → MERGE 12-30 05:44 → SUATTDRO 12-30 05:44 → 3S 12-30 05:44